=== PATIENT | female | born 1970 | race Caucasian/White ===

== ENCOUNTER 2018-08-05 13:51 | Emergency (ER) | payer OTHER ==
[~2018-08-05] VITALS: Ht 160 cm; Wt 70.8 kg
[2018-08-05] MEDS ORDERED: UNITHROID88 MCG PO (14:07)
[2018-08-05] MEDS ORDERED: SYNJARDY 12.5-1 EAC1 PO (14:08)
== END 2018-08-05 18:14 | disposition home or self-care (01) ==
LOC: ER 13:51
DX: R10.9 Unspecified abdominal pain (principal); N83.291 Other ovarian cyst, right side; K76.0 Fatty (change of) liver, not elsewhere classified